=== PATIENT | male | born 1965 | race Caucasian/White ===

== ENCOUNTER 2016-08-22 09:29 | Outpatient (CLI) ==
[2016-03-25 21:52] VITALS: BMI 37.6
[2016-08-22 09:52] VITALS: BP 148/85; TEMP 97.6
[2016-08-22] MEDS ORDERED: TYLENOL PO STA (09:52)
[2016-08-22] MEDS ORDERED: INFED 500 MG in SODIUM CHLORIDE 250 ML IV STA (09:53)
[2016-08-22] MEDS ORDERED: BENADRYL 25 MG in SODIUM CHLORIDE 100 ML IV STA (09:53)
[2016-08-22] MEDS ORDERED: INFED IV STA (10:37)
[2016-08-22] MEDS ORDERED: SODIUM CHLORIDE IV STA (10:37)
[2016-08-22] MEDS ORDERED: INFED IVP STA (10:50)
== END 2016-08-22 13:22 | disposition home or self-care (01) ==
LOC: OUTPT 09:29
PROVIDERS: ATTEND Internal Medicine Hematology & Oncology
DX: D50.9 Iron deficiency anemia, unspecified (principal); K90.9 Intestinal malabsorption, unspecified
CPT/HCPCS: 96365; 96366; 96376; 99211

== ENCOUNTER 2016-11-14 19:08 | Emergency (ER) ==
[2016-11-14 19:14] VITALS: TEMP 98.8; BMI 36.6
[2016-11-14] MEDS ORDERED: DILAUDID 2 MG/ML SYRINGE IM STA (19:24)
[2016-11-14] MEDS ORDERED: PHENERGAN 25 MG/ML VIAL IM STA (19:24)
--- NOTE | 2016-11-14 19:54 | ED.PDOC ---
General ED Provider: Dr. CARMELO LAI-ER Chief Complaint: Headache Stated Complaint: duarte got a migraine Time Seen by Physician: 19:20 Information Source: Patient Exam Limitations: No limitations Primary Care Provider: RICARDO STUBBS Nursing and Triage Documentation Reviewed and Agree: Yes Neurological Complaint Exam - Headache Complaint/Exam Onset: Gradual Duration: 12hrs Symptoms Are: Still present Timing: Constant Worst Headache Ever: No Initial Severity: Mild Current Severity: Moderate Location: Diffuse Character: Reports: Dull, Throbbing, Pressure, Typical headache, Migraine Aggravating: Reports: Bright lights Alleviating: Reports: None Associated Signs and Symptoms: Reports: Nausea. Denies: Dizziness, Seizure, Vomiting, Sinus pressure, Fever, Neck pain, Neck stiffness, Decreased LOC, Visual changes Related History: Reports: Similar episode Related Surgical History: Reports: None SAH Risk Factors: Reports: None Meningitis Risk Factors: Reports: None SDH Risk Factors: Reports: None, Male Temporal Arteritis Risk Factors: Reports: Normal Head CT Within Last 12 Months: Yes Fundoscopic Exam: Present: Normal Findings Papilledema Present: No Temporal Artery Tenderness: Present: None Sinus Tenderness: Present: None TMJ Tenderness: Present: None Glascow Coma Scale (see protocol): 15 Meningeal Signs Positive: No Pain on Passive Flexion-Positive Kernig's: No ROM Limited In: No Limitiations Focal Weakness: Present: None Focal Sensory Loss: Present: None Gait: Normal Nystagmus Present: Yes Gag Reflex Present: No [id number]: Normal Findings Romberg Test Positive: No Babinski Sign: Negative Right, Negative Left Heel to Toe Normal: Yes Differential Diagnoses: Migraine Review of Systems - Review Of Systems Constitutional: Reports: No symptoms Eyes: Reports: No symptoms Ears, Nose, Mouth, Throat: Reports: No symptoms Respiratory: Reports: No symptoms Cardiac: Reports: No symptoms GI: Reports: Nausea : Reports: No symptoms Musculoskeletal: Reports: No symptoms Skin: Reports: No symptoms Neurological: Reports: Headache Endocrine: Reports: No symptoms Hematologic/Lymphatic: Reports: No symptoms All Other Systems: Reviewed and Negative Past Medical History - Past Medical History Previously Healthy: No Endocrine: Reports: DM 2, Dyslipidemia Cardiovascular: Reports: VA, Hypertension Respiratory: Reports: COPD Hematological: Reports: None Gastrointestinal: Reports: None Genitourinary: Reports: None Neuro/Psych: Reports: Anxiety Musculoskeletal: Reports: None Cancer: Reports: Colon Other Pertinent Past Medical History: Lymphoma, Brain Aneurysm, Castleman's Disease - Surgical History General Surgical History: Reports: Appendectomy, Cholecystectomy, Tonsillectomy , Stent, Heart Cath, Other (Bowel Resection X2 (CA)) - Family History Family History: Reports: Unknown - Social History Smoking Status: Never smoker Hx Substance Use: No Alcohol Screening: Occasionally Lives: With family - Immunizations Tetanus Shot up to Date: Yes Physical Exam - Physical Exam Appearance: Well-appearing, Well-nourished Pain Distress: Moderate Eyes: NOA ENT: Ears normal, Nose normal, Oropharynx normal Neck: Supple Respiratory: Airway patent, Breath sounds clear, Breath sounds equal, Respirations nonlabored Cardiovascular: RRR, Pulses normal, No rub, No murmur GI/: Soft, Nontender, No masses, Bowel sounds normal, No Organomegaly Musculoskeletal: Limited ROM Skin: Warm, Dry, Normal color Neurological: Sensation intact Psychiatric: Affect appropriate, Mood appropriate Re-Evaluation - Re-Evaluation Time of Re-Evaluation: 19:55 Status: Improved Vital Signs Stable: Yes Pain Level: 1 Appearance: NAD Lungs: Clear Skin: Warm and Dry Neuro: Alert and Oriented X3 CV: RRR Critical Care Note - Critical Care Note Total Time (mins): 0 Course - Course Orders, Labs, Meds: Orders Category Date Time Status Hydromorphone HCl/Pf [Dilaudid 2 mg/ml Syringe] MEDS 11/14/16 19:24 Discontinued 2 mg IM ONCE STA Promethazine HCl [Phenergan 25 mg/ml Vial] MEDS 11/14/16 19:24 Discontinued 25 mg IM ONCE STA Medications Discontinued Medications Generic Name Dose Route Start Last Admin Trade Name Bruceq PRN Reason Stop Dose Admin Hydromorphone HCl 2 mg 11/14/16 19:24 11/14/16 19:31 Dilaudid 2 Mg/Ml Syringe IM 11/14/16 19:25 2 mg ONCE STA Administration Promethazine HCl 25 mg 11/14/16 19:24 11/14/16 19:29 Phenergan 25 Mg/Ml Vial IM 11/14/16 19:25 25 mg ONCE STA Administration Vital Signs: Temp Pulse Resp BP Pulse Ox 11/14/16 19:56 161/86 H 11/14/16 19:09 98.8 F 89 20 191/107 H 92 L Departure - Departure Time of Disposition: 19:55 Disposition: HOME SELF-CARE Discharge Problem: Migraine Qualifiers: Migraine type: other Status migrainosus presence: without status migrainosus Intractability: not intractable Qualifier Code: (G43.809) Other migraine, not intractable, without status migrainosus Instructions: Migraine Headache (ED) Condition: Good Pt referred to PMD for follow-up: Yes Additional Instructions: f/u with pcp Allergies/Adverse Reactions: Allergies adhesive tape Adverse Reaction (Verified 03/25/16 18:36) ferraheme Adverse Reaction (Uncoded 03/25/16 18:36) states drug made him feel bad all over.Received when getting chemo. Home Medications: Ambulatory Orders Albuterol Sulfate [Proair Hfa] 2 puff IH Q6H PRN 01/24/13 Aspirin [Aspirin Chewable] 81 mg PO DAILY 01/24/13 Carvedilol [Coreg] 25 mg PO BID 01/24/13 Insulin Regular, Human [Humulin R] 1 units SQ PRN PRN 01/24/13 Ipratropium/Albuterol Sulfate [Combivent Inhaler] 2 puff IH QID PRN 01/24/13 Lorazepam [Ativan] 1 mg PO DAILY 01/24/13 Rosuvastatin Calcium [Crestor] 20 mg PO DAILY 01/24/13 Tizanidine HCl [Zanaflex] 4 mg PO BID PRN 01/24/13 Zolpidem Tartrate [Ambien] 5 mg PO BEDTIME 01/24/13 Hydrocodone Bit/Acetaminophen [Beverly 7.5-325] 7.5 mg PO QID PRN 03/12/15 Arformoterol Tartrate [Brovana] 15 mcg NEB BID PRN 06/11/15 Budesonide 0.25 mg IH BID PRN 06/11/15 Gabapentin 1,200 mg PO BEDTIME 06/11/15 Gabapentin 600 mg PO 0900,1300 06/11/15 Insulin Glargine,Hum.rec.anlog [Lantus] 25 unit SUBCUT BEDTIME 06/11/15 Ondansetron HCl [Zofran Tab] 4 mg PO Q12H PRN 06/11/15 Pantoprazole Sodium [Protonix] 40 mg PO QDAC 06/11/15 Furosemide [Lasix Tab] 80 mg PO BIDWM 03/08/16 Metolazone [Zaroxolyn] 2.5 mg PO 3 TIMES PER WEEK PRN 10/06/15 Valsartan 160 mg PO BID 10/06/15 Linaclotide [Linzess] 145 mcg PO DAILY PRN 11/14/16 Disposition Discussed With: Patient
[2016-11-14 19:57] VITALS: BP 161/86
== END 2016-11-14 21:00 | disposition home or self-care (01) ==
LOC: ED 19:08
DX: G43.809 Other migraine, not intractable, without status migrainosus (principal)
CPT/HCPCS: 96372; 99283

== ENCOUNTER 2016-11-28 11:44 | Outpatient (CLI) ==
[2013-01-29 11:46] VITALS: TEMP 97.2
[2016-11-28 12:19] LABS: CREATININE 1.31 mg/dL (0.60-1.10)
--- NOTE | 2016-11-28 13:22 | CT ---
EXAM: CT Abdomen with contrast. CT Pelvis with contrast. HISTORY: Left lower quadrant pain. Diverticulosis. COMPARISON: 05/22/2015. TECHNIQUE: Multiple axial images of the abdomen and pelvis were obtained following intravenous admi nistration of 100 mL of Omnipaque 350, low osmolar. Images were reformatted in the coronal plane. FINDINGS: No acute abnormality identified in the lung bases. Degenerative changes present in the s pine. Gallbladder is absent. The liver, pancreas, spleen, adrenal glands, and kidneys are without acute a bnormality. The bowel is normal in course and caliber without evidence for obstruction or inflammatory process. Colonic diverticulosis noted. Appendix not seen. Urinary bladder is not well distended. No free fluid or free air identified. Multiple clips present in the mesentery with multiple mesenteric lymph nodes present, largest measur ing 1.2 cm short axis on axial image 52. Multiple iliac chain lymph nodes present bilaterally laurence suring 1.7 cm short axis on the right on axial image 77 and 1.3 cm on the left on axial image 85. B ilateral inguinal lymph nodes present bilaterally. Retroperitoneal lymph nodes measure up to 1.2 cm on axial image 55. Lymph nodes are grossly stable since the prior study. IMPRESSION: 1. Diverticulosis without acute diverticulitis. 2. Grossly stable mesenteric, retroperitoneal, iliac and inguinal lymphadenopathy.
== END 2016-11-28 11:45 | disposition home or self-care (01) ==
LOC: RAD 11:44
PROVIDERS: ATTEND Internal Medicine
DX: R10.32 Left lower quadrant pain (principal); K57.90 Diverticulosis of intestine, part unspecified, without perforation or abscess without bleeding
CPT/HCPCS: 36415; 82565

== ENCOUNTER 2017-04-11 14:57 | Inpatient (IN) ==
[2017-04-11] MEDS ORDERED: NITROSTAT SL PRN (15:21)
[2017-04-11] MEDS ORDERED: VISTARIL INJ IM PRN (15:21)
[2017-04-11] MEDS ORDERED: TYLENOL PO PRN (15:21)
[2017-04-11] MEDS ORDERED: ATROPINE SULFATE PFS IVP PRN (15:21)
[2017-04-11] MEDS ORDERED: DECADRON 4 MG/ML SDV IM STA (15:26)
[2017-04-11] MEDS ORDERED: LASIX IVP STA (15:27)
[2017-04-11 16:03] LABS: BASOPHILS % (AUTO) 0.9 % (0.0-3.0); EOSINOPHILS # (AUTO) 0.2 K/ul (0.0-0.7); EOSINOPHILS % (AUTO) 5.4 % (0.0-7.0); HEMATOCRIT 39.5 % (42.0-52.0); HEMOGLOBIN 13.8 g/dl (14.0-18.0); IMMATURE GRANULOCYTE % (AUTO) 0.4 % (0.0-5.0); LYMPHOCYTES # (AUTO) 1.3 K/uL (0.60-3.4); LYMPHOCYTES % (AUTO) 28.9 (10.0-50.0); MEAN CORPUSCULAR HEMOGLOBIN 29.6 pg (27.0-31.0); MEAN CORPUSCULAR HGB CONC 34.9 (31.8-35.4); MEAN CORPUSCULAR VOLUME 84.6 fl (80.0-94.0); MONOCYTES # (AUTO) 0.3 K/uL (0.4-2.0); MONOCYTES % (AUTO) 6.5 (0-10); NEUTROPHILS # (AUTO) 2.6 K/ul (2.0-6.9); NEUTROPHILS % (AUTO) 57.9; PLATELET COUNT 141 10^3/uL (140-440); RED BLOOD COUNT 4.67 10^6/ul (4.70-6.10); WHITE BLOOD COUNT 4.47 K/ul (4.2-10.2)
[2017-04-11 16:05] LABS: ABG BASE EXCESS 6 (-2.0-2.0); ABG PCO2 50.9 mmHg (35-45); ABG PH 7.396 (7.35-7.45)
[2017-04-11 16:06] LABS: ABG HCO3 31.2 (22.0-26.0); ABG TCO2 33 (22.0-28.0)
[2017-04-11] MEDS ORDERED: ZAROXOLYN PO PRN (16:22)
[2017-04-11] MEDS ORDERED: PULMICORT 0.25 MG/2 ML NEB PRN (16:22)
[2017-04-11] MEDS ORDERED: ZOFRAN TAB PO PRN (16:22)
[2017-04-11] MEDS ORDERED: PROAIR HFA IH PRN (16:22)
--- NOTE | 2017-04-11 16:29 | DI ---
Exam: Single x-ray of the chest. Comparison: 03/25/2016. Reason for exam: Short of breath. FINDINGS: No pneumothorax, pleural effusion, or focal consolidation. The cardiac silhouette is not enlarged. The imaged osseous structures appear grossly unremarkable without acute fracture. Impression: No acute cardiopulmonary process.
[2017-04-11 16:47] LABS: ALBUMIN 3.6 g/dL (3.4-5.0); ALBUMIN/GLOBULIN RATIO 1.13; ANION GAP 13.6; BILIRUBIN,TOTAL 0.43 mg/dL (0.00-1.20); BUN/CREATININE RATIO 12.5; CREATININE 1.12 mg/dL (0.60-1.10); POTASSIUM 3.6 mmol/L (3.5-5.1); TOTAL PROTEIN 6.8 g/dL (6.4-8.2); TROPONIN I 0.034 ng/ml (0.0000-0.4000)
[2017-04-11 16:53] VITALS: BMI 37.9
[2017-04-11] MEDS: PULMICORT 0.5 MG/2 ML NEB SCH (17:00)
[2017-04-11] MEDS ORDERED: NON-FORMULARY MEDICATION (Rosuvastatin Calcium [Crestor] 20 MG) PO SCH ×22 (17:00)
[2017-04-11] MEDS: DUONEB NEB SCH ×2 (17:00→23:17)
[2017-04-11] MEDS: COREG PO SCH (17:08)
[2017-04-11] MEDS: NORCO 7.5-325 PO SCH ×2 (17:08→20:08)
[2017-04-11 17:22] LABS: ADD URINE MICROSCOPIC NO; BILIRUBIN,URINE Negative (NEGATIVE); KETONES,URINE Negative (NEGATIVE); LEUKOCYTE ESTERASE ,URINE Negative (NEGATIVE); NITRITE,URINE Negative (NEGATIVE); PH,URINE 6.5 (5-9); PROTEIN,URINE Negative (NEGATIVE); URINE, BLOOD Negative (NEGATIVE)
[2017-04-11] MEDS ORDERED: HUMULIN R SUBCUT SCH (17:30)
[2017-04-11] MEDS: LANTUS SUBCUT SCH (20:05)
[2017-04-11] MEDS: RANEXA PO SCH (20:06)
[2017-04-11] MEDS: AMBIEN PO SCH (20:06)
[2017-04-11] MEDS: CRESTOR PO SCH (20:06)
[2017-04-11] MEDS: NEURONTIN PO SCH (20:07)
[2017-04-11] MEDS: ZANAFLEX PO PRN (20:07)
[2017-04-11] MEDS ORDERED: NON-FORMULARY MEDICATION (Gabapentin [Gabapentin] 1,200 MG) PO SCH (21:00)
[2017-04-11 23:36] LABS: TROPONIN I 0.041 ng/ml (0.0000-0.4000)
[2017-04-12 04:52] LABS: BASOPHILS % (AUTO) 0.1 % (0.0-3.0); HEMATOCRIT 40.1 % (42.0-52.0); HEMOGLOBIN 13.9 g/dl (14.0-18.0); IMMATURE GRANULOCYTE % (AUTO) 0.7 % (0.0-5.0); LYMPHOCYTES # (AUTO) 0.6 K/uL (0.60-3.4); LYMPHOCYTES % (AUTO) 7.1 (10.0-50.0); MEAN CORPUSCULAR HEMOGLOBIN 29.1 pg (27.0-31.0); MEAN CORPUSCULAR HGB CONC 34.7 (31.8-35.4); MEAN CORPUSCULAR VOLUME 84.1 fl (80.0-94.0); MONOCYTES # (AUTO) 0.2 K/uL (0.4-2.0); MONOCYTES % (AUTO) 1.7 (0-10); NEUTROPHILS % (AUTO) 90.4; PLATELET COUNT 153 10^3/uL (140-440); RED BLOOD COUNT 4.77 10^6/ul (4.70-6.10); WHITE BLOOD COUNT 8.84 K/ul (4.2-10.2)
[2017-04-12 05:15] LABS: ALBUMIN 3.6 g/dL (3.4-5.0); ALBUMIN/GLOBULIN RATIO 1.09; BILIRUBIN,TOTAL 0.53 mg/dL (0.00-1.20); BUN/CREATININE RATIO 15.12; CALCIUM 9.4 mg/dL (8.2-10.2); CREATININE 1.19 mg/dL (0.60-1.10); TOTAL PROTEIN 6.9 g/dL (6.4-8.2)
[2017-04-12] MEDS: DUONEB NEB SCH ×4 (05:24→23:06)
[2017-04-12] MEDS: PULMICORT 0.5 MG/2 ML NEB SCH ×2 (05:25→17:05)
[2017-04-12] MEDS: LASIX IVP SCH (05:42)
[2017-04-12] MEDS: PROTONIX PO SCH (05:43)
[2017-04-12] MEDS: NORCO 7.5-325 PO SCH ×3 (05:43→17:06)
[2017-04-12] MEDS: HUMULIN R SUBCUT PRN ×3 (05:43→17:06)
[2017-04-12] MEDS ORDERED: HUMULIN R SUBCUT SCH (06:30)
[2017-04-12] MEDS ORDERED: XOPENEX 1.25 MG NEB PRN (08:38)
[2017-04-12] MEDS ORDERED: NON-FORMULARY MEDICATION (Gabapentin [Gabapentin] 600 MG) PO SCH (09:00)
[2017-04-12] MEDS ORDERED: DECADRON 4 MG/ML SDV IM SCH (09:00)
[2017-04-12] MEDS ORDERED: ASPIRIN CHEWABLE PO SCH (09:00)
[2017-04-12] MEDS ORDERED: ATIVAN PO SCH (09:00)
[2017-04-12] MEDS: RANEXA PO SCH ×2 (09:18→20:40)
[2017-04-12] MEDS: COREG PO SCH ×2 (09:18→17:06)
[2017-04-12] MEDS: NEURONTIN PO SCH ×3 (09:18→20:41)
[2017-04-12] MEDS: ATIVAN PO SCH (09:19)
[2017-04-12] MEDS: PRASUGREL HCL 10 MG PO SCH (09:19)
[2017-04-12] MEDS: ASPIRIN EC PO SCH (09:19)
[2017-04-12] MEDS: DIOVAN PO SCH (09:19)
[2017-04-12] MEDS: ZANAFLEX PO PRN ×2 (09:23→20:40)
--- NOTE | 2017-04-12 12:00 | PCM.PROG ---
Attending Provider: ATTENDING PROVIDER: Dr. RICARDO STUBBS DATE OF SERVICE: 04/12/17 SUBJECTIVE: This 51 year old WHITE/ M was hospitalized 04/11/17. The patient is hospitalized with CHF, COPD, pleuritic type of chest pain. The patient's cardiac markers are negative for any ischemia. EKG shows sinus rhythm, LVH, nonspecific intraventricular conduction delay. No acute changes. REVIEW OF SYSTEMS: CONSTITUTIONAL: No night sweats. No fatigue, malaise, lethargy. No fever or chills. HEENT: Eyes: No visual changes. No eye pain. No eye discharge. ENT: No runny nose. No epistaxis. No sinus pain. No odynophagia. No congestion. RESPIRATORY: No cough, no congestion. No hemoptysis. No shortness of breath. CARDIOVASCULAR: No angina symptoms. No CHF symptoms. No atypical chest pain for CAD. No palpitations. No orthopnea.. GASTROINTESTINAL: No abdominal pain. No nausea or vomiting. No diarrhea or constipation. No hematemesis. No hematochezia. GENITOURINARY: No urgency. No frequency. No dysuria. No hematuria. No obstructive symptoms. No discharge. No pain. No significant abnormal bleeding. MUSCULOSKELETAL: No musculoskeletal pain; no joint swelling. NEUROLOGICAL: Awake, alert, oriented to time, place and person. No headache. No neck pain. No syncope. No seizures. No dizziness. PSYCHIATRIC: Not anxious. No depression. No suicidal thoughts. No homicidal thoughts. SKIN: No rash. No lesions. No wounds. ENDOCRINE: No unexplained weight loss. No weight gain. HEMATOLOGIC/LYMPHATIC: No anemia. No purpura. No petechiae. No prolonged or excessive bleeding. No palpable lymph nodes. PHYSICAL EXAMINATION: GENERAL: The patient is awake, alert and oriented, lying in bed in no distress. VITAL SIGNS: Temperature 98.0 F, Pulse 87, Respiratory Rate 16, BP 133/77, Pulse Ox 94% HEENT: Head normocephalic, atraumatic. Eyes: Extraocular muscles are intact. Pupils are equal, round and reactive to light and accommodation. Ears: No lesions. Nose appeared normal. Throat: No exudate or erythema. NECK: Supple. No JVD, no carotid bruit. No lymphadenopathy or thyromegaly. LUNGS: Decreased breath sounds but more or less clear. Good air entry, better than yesterday. Percussion note normal. Chest symmetrical. HEART: S1, S2, no S3. No murmurs. No cyanosis or clubbing. No ascites. Pulses: Dorsalis pedis and posterior tibial pulses +1 to +2 both sides. ABDOMEN: Soft. Non-tender. Bowel sounds active. No CVA tenderness. No mass felt. EXTREMITIES: No edema. Full range of motion of all extremities, equal. NEUROLOGIC: No focal deficit. Cranial nerves II through XII are grossly intact. No headache, no double vision or headache. SKIN: Not dry. Intact. Turgor-normal. LYMPHATIC: No palpable lymph nodes/no lymphedema. MUSCULOSKELETAL: Normal joints with no swelling. Muscle tone is normal. LAB REVIEW: 04/12/17 04:30 04/12/17 04:30 04/12/17 04:30: Sodium 138, Potassium 4.0, Chloride 99, Carbon Dioxide 28, Anion Gap 15.0, BUN 18, Creatinine 1.19 H, Estimated GFR (MDRD) 64.00, BUN/ Creatinine Ratio 15.12, Glucose 238 H D, Calcium 9.4, Total Bilirubin 0.53, AST 14 L, ALT 18, Alkaline Phosphatase 74, Total Protein 6.9, Albumin 3.6, Globulin 3.3, Albumin/Globulin Ratio 1.09 04/12/17 04:30: WBC 8.84, RBC 4.77, Hgb 13.9 L, Hct 40.1 L, MCV 84.1, MCH 29.1, MCHC 34.7, RDW Coeff of Kvng 12.7, Plt Count 153, Immature Gran % (Auto) 0.7, Neut % (Auto) 90.4, Lymph % (Auto) 7.1 L, [place] % (Auto) 1.7, Eos % (Auto) 0.0, Baso % (Auto) 0.1, Immature Gran # (Auto) 0.1, Neut # 8.0 H, Lymph # 0.6, [place] # 0.2 L, Eos # 0.0, Baso # 0.0 04/11/17 23:10: Total Creatine Kinase 70, Myoglobin 29, Troponin I 0.0410 04/11/17 17:19: Urine Color Yellow, Urine Clarity Clear, Urine pH 6.5, Ur Specific [place] 1.015, Urine Protein Negative, Urine Glucose (UA) Negative, Urine Ketones Negative, Urine Blood Negative, Urine Nitrite Negative, Urine Bilirubin Negative, Urine Urobilinogen 0.2, Ur Leukocyte Esterase Negative 04/11/17 15:59: Sodium 140, Potassium 3.6, Chloride 102, Carbon Dioxide 28, Anion Gap 13.6, BUN 14, Creatinine 1.12 H, Estimated GFR (MDRD) 69.00, BUN/ Creatinine Ratio 12.50, Glucose 188 H, Calcium 9.0, Total Bilirubin 0.43, AST 15 , ALT 17, Alkaline Phosphatase 75, Total Creatine Kinase 72, Myoglobin 34, Troponin I 0.0340, Total Protein 6.8, Albumin 3.6, Globulin 3.2, Albumin/ Globulin Ratio 1.13, TSH 1.820, Free T4 0.83 04/11/17 15:59: WBC 4.47, RBC 4.67 L, Hgb 13.8 L, Hct 39.5 L, MCV 84.6, MCH 29.6 , MCHC 34.9, RDW Coeff of Kvng 13.0, Plt Count 141, Immature Gran % (Auto) 0.4, Neut % (Auto) 57.9, Lymph % (Auto) 28.9, [place] % (Auto) 6.5, Eos % (Auto) 5.4, Baso % (Auto) 0.9, Immature Gran # (Auto) 0.0, Neut # 2.6, Lymph # 1.3, [place] # 0.3 L, Eos # 0.2, Baso # 0.0 04/11/17 15:27: Puncture Site Rbrach, O2 Saturation 93.0 L, ABG pH 7.396, ABG pCO2 50.9 H, ABG pO2 69.0 L, ABG HCO3 31.2 H, ABG Total CO2 33 H, ABG Base Excess 6 H, FiO2 % 21.0 ASSESSMENT: 1. CHF 2. COPD, bronchitis, pleuritic pain all under control PLAN: 1. Continue IV Lasix 2. 1 cc Decadron today 3. Will monitor CBC 4. Will monitor telemetry 5. Continue nebs 6. Echocardiogram 7. Xopenex p.r.n. q.i.d. Plan and coordination of the patient's care discussed in the presence of Pensionholder Information Clerk and nurse. EDUCATION: Education carried out about CHF with the patient who voices understanding. CONDITION: Stable SCRIBED BY: MICHELLE FRIAS Chlorine Plant Operator scribed while in presence of service performed by Dr. RICARDO STUBBS on 04/12/17 ([id number])
[2017-04-12] MEDS: AMBIEN PO SCH (20:40)
[2017-04-12] MEDS: CRESTOR PO SCH (20:40)
[2017-04-12] MEDS: LANTUS SUBCUT SCH (20:41)
[2017-04-13] MEDS: NORCO 7.5-325 PO SCH ×3 (00:01→11:55)
[2017-04-13 04:40] LABS: BASOPHILS % (AUTO) 0.2 % (0.0-3.0); EOSINOPHILS % (AUTO) 0.1 % (0.0-7.0); HEMATOCRIT 38.1 % (42.0-52.0); HEMOGLOBIN 13.1 g/dl (14.0-18.0); IMMATURE GRANULOCYTE % (AUTO) 0.8 % (0.0-5.0); LYMPHOCYTES # (AUTO) 1.1 K/uL (0.60-3.4); LYMPHOCYTES % (AUTO) 13.2 (10.0-50.0); MEAN CORPUSCULAR HGB CONC 34.4 (31.8-35.4); MEAN CORPUSCULAR VOLUME 84.3 fl (80.0-94.0); MONOCYTES # (AUTO) 0.4 K/uL (0.4-2.0); NEUTROPHILS % (AUTO) 80.7; PLATELET COUNT 169 10^3/uL (140-440); RED BLOOD COUNT 4.52 10^6/ul (4.70-6.10); WHITE BLOOD COUNT 8.66 K/ul (4.2-10.2)
[2017-04-13 05:04] LABS: ALBUMIN 3.5 g/dL (3.4-5.0); ALBUMIN/GLOBULIN RATIO 1.13; ANION GAP 14.9; BILIRUBIN,TOTAL 0.47 mg/dL (0.00-1.20); CALCIUM 9.6 mg/dL (8.2-10.2); CREATININE 1.21 mg/dL (0.60-1.10); POTASSIUM 3.9 mmol/L (3.5-5.1); TOTAL PROTEIN 6.6 g/dL (6.4-8.2)
[2017-04-13] MEDS: DUONEB NEB SCH ×2 (05:16→11:37)
[2017-04-13] MEDS: PULMICORT 0.5 MG/2 ML NEB SCH (05:16)
[2017-04-13] MEDS: PROTONIX PO SCH (05:46)
[2017-04-13] MEDS: HUMULIN R SUBCUT PRN ×2 (05:47→11:56)
[2017-04-13] MEDS: LASIX IVP SCH (05:51)
[2017-04-13 09:27] VITALS: BP 116/66; TEMP 98
[2017-04-13] MEDS: ASPIRIN EC PO SCH (09:56)
[2017-04-13] MEDS: NEURONTIN PO SCH ×2 (09:57→12:06)
[2017-04-13] MEDS: ATIVAN PO SCH (09:57)
[2017-04-13] MEDS: RANEXA PO SCH (09:57)
[2017-04-13] MEDS: COREG PO SCH (09:57)
[2017-04-13] MEDS: DIOVAN PO SCH (09:57)
[2017-04-13] MEDS: PRASUGREL HCL 10 MG PO SCH (09:58)
[2017-04-13] MEDS ORDERED: NON-FORMULARY MEDICATION (Linaclotide [Linzess] 145 MCG) PO PRN ×2 (10:04→10:30)
--- NOTE | 2017-04-13 11:28 | HP ---
DATE OF SERVICE: 04/11/17 REASON FOR HOSPITALIZATION: Sharp left-sided chest pain. HISTORY OF PRESENT ILLNESS: This is a 51-year-old male with fatigue, shortness of breath, sharp-left sided chest pain. The patient was unable to sleep lying down last night. Decreased urine output, has taken Zaroxolyn/Lasix. REVIEW OF SYSTEMS: CONSTITUTIONAL: Fatigue. No fever. HEENT: No sinus drainage, no sore throat. RESPIRATORY: Cough. No hemoptysis. CARDIOVASCULAR: Atypical chest pain for coronary artery disease, pleuritic in type. No angina. CHF symptoms - orthopnea. No palpitations. GASTROINTESTINAL: No melena or abdominal pain. No GERD. GENITOURINARY: No hematuria, no prostatism, no polyuria. PROSPECT MANAGER: No blackout, no dizziness, no headache, no double vision. MUSCULOSKELETAL: Osteoarthritis pain. No joint swelling. ENDOCRINE: Weight loss of 3 lbs. SKIN: Not dry, no rash. PSYCHIATRIC: Anxious. No depression, no suicidal thoughts, no homicidal thoughts. PAST MEDICAL HISTORY: 1. Anemia 2. CKD-4 3. Diabetes mellitus type 2 4. Obesity 5. Hypertension 6. Sleep apnea 7. LVH 8. CHF 9. 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 COPD 12. Chronic bronchitis/asthma, uses 02 at home SOCIAL HISTORY: Nonsmoker. . No alcohol use. No drug use. Has three children. FAMILY HISTORY: Father is living. Mother is . One brother. One sister. MEDICATIONS: (HOME) 1. Valsartan 80 mg once daily 2. Ranexa 500 mg tablet extended release 12 hr one tablet p.o. two times daily 3. Effient 10 mg take one tablet (10 mg) p.o. once daily 4. Linzess 145 mcg capsule take one capsule p.o. once daily on an empty stomach at least 30 min before first meal of the day swallowing hole. 5. Zanaflex 4 mg one tablet p.o. q.12hr as needed not to exceed 3 doses in 24 hours p.r.n. 6. Zofran 4 mg one tablet p.o. q.12hr p.r.n. 7. Protonix 40 mg one p.o. once daily 8. Albuterol 90 mcg/actuation HFA aerosol inhaler two puffs by inhalation route four times per day 9. Neurontin 600 mg one capsule p.o. three times per day take one a.m., one noon and two at h.s. 10. Viagra 100 mg p.o. once daily as needed approximately one hour before sexual activity p.r.n. 11. Lantus 100 unit/mL solution p.m. 12. Crestor 20 mg take one tablet p.o. daily 13. Zaroxolyn 2.5 mg p.o. one time per day, one tablet three times per week p.r.n. 14. Coreg 25 mg one tablet p.o. two times per day with food PHYSICAL EXAMINATION: V/S: Pulse 80, BP 156/90, 02 sat 96%, weight 269.8. Height 5'10", weight 209.8 , BMI 38.7. GENERAL APPEARANCE: Oriented times three. Pallor positive. HEENT: Normal. NECK: No JVP, no bruits. RESPIRATORY: Lungs are clear with decreased breath sounds, minimal air movement. CARDIOVASCULAR: S1, S2, no S3, no murmurs. No cyanosis, clubbing. No ascites. GI/ABDOMEN: Tenderness. Bowel sounds are active. EXTREMITIES: No edema, pulses +1, equal. PROSPECT MANAGER: Deep tendon reflexes, sensory, motor and gait all normal. RECTAL/PROSTATE: Prostate 02/12 (0.2). Colonoscopy Dr. Sarmiento 06/12. ASSESSMENT: 1. CHF 2. Chest pain, pleuritic 3. CAD with stent times two 05/15 4. COPD/ASTHMA 5. 02 at home p.r.n. 6. Anemia 7. Chronic bronchitis/asthma 8. Chronic kidney disease, Stage 4 9. Diabetes mellitus type 2 (A1C 8.4 on 02/13 10. Obesity 11. Hypertension 12. LVH 13. CHF 14. Dyslipidemia 15. Lymphoma 16. Sleep apnea 17. DJD spine PLAN: 1. Routine telemetry orders 2. CBC/CMP daily and now 3. Chest x-ray 4. ADA diet 5. ABG now 6. IV Lasix 40 mg KARRIE/and q.a.m. 7. Oxygen 2L/cannula/min 8. 1 cc Decadron today and q.a.m. times two 9. T4, TSH 10. Continue all home medications 11. D/C oral Lasix 12. Duonebs q.i.d. 13. Pulmicort b.i.d. TIME SPENT: More than 70 minutes. SERAFIN
--- NOTE | 2017-04-14 15:43 | DS ---
DATE OF SERVICE: 04/13/17 FINAL DIAGNOSIS: 1. Congestive heart failure 2. COPD/asthmatic bronchitis 3. Pleuritic chest pain 4. Coronary artery disease status post stent application, 2009 5. Cardiomyopathy 6. Left ventricular hypertrophy 7. Hypertension 8. Dyslipidemia 9. Diabetes mellitus, type 2 10.Metabolic syndrome 11.Sleep apnea 12.Hypothyroidism 13.Obesity (BMI 37.9) 14.Lymphoma 15.DJD of the spine 16.Erectile dysfunction 17.Cholecystectomy 18.Nonsmoker DISCHARGE INSTRUCTIONS: Discharge home today. Return to see Dr. Bhagat in 5-7 days. Resume home medication as per listed provided by Nursing staff. MEDICATIONS AT DISCHARGE: Humulin R SQ PRN Crestor 20mg PO QPM Zanaflex 4mg PO twice a day PRN Coreg 25mg PO twice a day Proair 2puffs IH Q 6 hours PRN Ambien 5mg PO bedtime Combivent 2 puffs IG four times a day PRN Aspirin 81mg PO daily [place] 7.5-325mg PO four times a day Protonix 40mg PO QDAC Zofran 4mg Po Q 12 hours Gabapentin 1,200mg PO bedtime Gabapentin 600mg PO 0900, 1300 Lantus 25unit SUBCUT bedtime Budesonide 0.25mg IH twice a day PRN Brovana 15mcg NEB twice a day PRN Zaroxolyn 2.5mg PO three time per week PRN Linzess 145mcg PO daily PRN Ativan 0.5mg PO daily Ranexa 500mg PO twice a day Effient 10mg PO daily Furosemide 80mg PO QDAC Valsartan 80mg PO QAM Viagra 100mg PO as directed PRN NEW PRESCRIPTIONS: Lasix 40mg PO QDAC DIET INSTRUCTIONS: Consistent carbs Low salt ACTIVITY: Get plenty of rest at home. Gradually increase activity level according to toleration. SMOKING: Never smoker DISEASE SPECIFIC EDUCATION: Foot and eye care Elevate legs Congestive heart failure HOSPITAL COURSE: 51 year old white male hospitalized with fluid retention and worsening of COPD, bronchitis and pleuritic type of pain. The patient was given steroids, NEBS treatment, IV Lasix. The patient's condition improved. His face was less swollen and the edema in the legs subsided and started breathing a lot better. There was no wheezing. The patient has asthma which requires intensive treatment at times. The patient's echo showed practically normal LV contractility with LVH with borderline enlarged LV cavity and the patient has enlarged LA cavity. The patient was advised to take his medication on regular basis and advised to lose weight and join cardiopulmonary rehab. Counseling for weight loss diet done. The patient's BMI is 38 almost to morbid obesity level. He has several risk factors for CVA. On discharge the patient had hgb of 13, hct 38, WBC 8,600 normal differential, creatinine 1.2, BUN 23, potassium 3.9. Condition at the time of discharge stable. TIME SPENT: More than 60 minutes. MTDD
--- NOTE | 2017-04-14 15:44 | PN ---
04/11/17: Level 5 04/12/17: Intermediate 04/13/17: D as in discharge MTDD
--- NOTE | 2017-04-14 15:53 | PN ---
DATE OF SERVICE: 04/13/17 SUBJECTIVE: 51 year old white male hospitalized with COPD, bronchitis, pleuritic type of pain, early CHF with fluid retentions. The patient's condition has improved remarkably and he is feeling a lot better and wants to go home. REVIEW OF SYSTEMS: CONSTITUTIONAL: No night sweats. No fatigue, malaise, lethargy. No fever or chills. HEENT: Eyes: No visual changes. No eye pain. No eye discharge. ENT: No runny nose. No epistaxis. No sinus pain. No sore throat. No odynophagia. No congestion. RESPIRATORY: No cough, no congestion. No hemoptysis. No shortness of breath. CARDIOVASCULAR: No angina symptoms. No CHF symptoms. No atypical chest pain for CAD. No palpitations. No orthopnea. GASTROINTESTINAL: No abdominal pain. No nausea or vomiting. No diarrhea or constipation. No hematemesis. No hematochezia. GENITOURINARY: No urgency. No frequency. No dysuria. No hematuria. No obstructive symptoms. No discharge. No pain. No significant abnormal bleeding. MUSCULOSKELETAL: No musculoskeletal pain; no joint swelling. NEUROLOGICAL: No headache. No neck pain. No syncope. No seizures. No dizziness. PSYCHIATRIC: Not anxious. No depression. No suicidal thoughts. No homicidal thoughts. SKIN: No rash. No lesions. No wounds. ENDOCRINE: No unexplained weight loss. No weight gain. HEMATOLOGIC/LYMPHATIC: No anemia. No purpura. No petechiae. No prolonged or excessive bleeding. No palpable lymph nodes. PHYSICAL EXAMINATION: GENERAL: The patient is oriented to time, place and person. VITAL SIGNS: Temperature 97.8, pulse 80, respiratory rate 17, blood pressure 107/60 and pulse ox 97%. HEENT: Head normocephalic, atraumatic. Eyes: Extraocular muscles are intact. Pupils are equal, round and reactive to light and accommodation. Ears: No lesions. Nose appeared normal. Throat: No exudate or erythema. NECK: Supple. No JVP, no carotid bruit. No lymphadenopathy or thyromegaly. LUNGS: Good air entry with no wheeze. Clear to auscultation. Percussion note normal. Chest symmetrical. HEART: S1, S2, no S3. No murmurs. No cyanosis or clubbing. No ascites. Pulses: Dorsalis pedis and posterior tibial pulses +1 to +2 both sides. ABDOMEN: Soft. Nontender. Bowel sounds active. No CVA tenderness. No mass felt. EXTREMITIES: Trace edema. Full range of motion of all extremities, equal. NEUROLOGIC: No focal deficit. Cranial nerves II through XII are grossly intact. No headache, no double vision or headache. SKIN: Not dry. Intact. Turgor - normal. LYMPHATIC: No palpable lymph nodes/no lymphedema. MUSCULOSKELETAL: Normal joints with no swelling. Muscle tone is normal. LABS: hgb 13.1, hct 38, WBC 8,600 normal differential, creatinine 1.2, BUN 23, potassium 3.9. The patient had an echocardiogram done which showed almost normal LV contractility, borderline LV cavity, enlarged LV cavity and valves are normal. ASSESSMENT: 1. CHF 2. Acute bronchitis 3. Pleuritis pain, all subsided 4. Almost morbid obesity, advised to lose weight PLAN: 1. Advised to join pulmonary and cardiac rehab with CHF, Coronary artery disease and coronary artery disease and COPD 2. Continue all the medications 3. Advised to take medication on regular basis CONDITION: Stable. TIME SPENT: More than 30 minutes. Plan and coordination of the patient's care discussed in the presence of nurse. SERAFIN
--- NOTE | 2017-04-17 14:03 | ECHO2D ---
Date of Exam: 04/13/17 Ordering Physician: RICARDO STUBBS Room #: [id number] Reason for Echo: CHF, SOB, CHEST PAIN M-Mode Normal Adult Results LV Dimensions Normal Adult Results AoV Opening excursions >1.6 >1.6 LVEDD-base- 3.5-5.8 5.9 Ao root dimensions 2.0-3.7 4.2 LVESD-base- 3.1-4.6 L. Atrium dimensions 1.9-3.8 5.4 Post. Wall thickness 0.8-1.1 1.6 IV septum (thickness) 0.7-1.2 1.5 Post. Wall excursion 0.72-1.3 NORMAL Septal motion NORMAL Systolic motion R. Ventricular cavity 1.5-2.0 NORMAL LVEF 60% 56% Paradoxical septal wall motion NORMAL 2-D : ENLARGED LEFT ATRIAL CAVITY AND LEFT VENTRICLE CAVITY--NORMAL LEFT VENTRICLE CONTRACTILITY--NO EFFUSION, NO THROMBUS M-MODE: MV: NORMAL AV: NORMAL TV: NORMAL PV: CHAMBER SIZE: ENLARGED LEFT ATRIAL AND LEFT VENTRICLE CAVITIES WALL MOTION: NORMAL PERICARDIUM: NORMAL INTERPRETATION: 1. MODERATE LEFT VENTRICULAR HYPERTROPHY 2. ENLARGED LEFT ATRIAL AND LEFT VENTRICLE CAVITIES 3. NORMAL LEFT VENTRICULAR CONTRACTILITY 4. NORMAL VALVES MTDD
== END 2017-04-13 12:10 | disposition home or self-care (01) | DRG 292 ==
LOC: MEDSURG B 14:57
PROVIDERS: ADMIT Internal Medicine; ATTEND Internal Medicine
DX: I50.9 Heart failure, unspecified (principal); N18.4 Chronic kidney disease, stage 4 (severe); C85.90 Non-Hodgkin lymphoma, unspecified, unspecified site; J20.9 Acute bronchitis, unspecified; J44.9 Chronic obstructive pulmonary disease, unspecified; R07.81 Pleurodynia; I51.7 Cardiomegaly; I42.9 Cardiomyopathy, unspecified; I12.9 Hypertensive chronic kidney disease with stage 1 through stage 4 chronic kidney disease, or unspecified chronic kidney disease; E11.22 Type 2 diabetes mellitus with diabetic chronic kidney disease; I25.10 Atherosclerotic heart disease of native coronary artery without angina pectoris; I10 Essential (primary) hypertension; R06.02 Shortness of breath; E78.5 Hyperlipidemia, unspecified; E88.81 Metabolic syndrome and other insulin resistance; G47.30 Sleep apnea, unspecified; E03.9 Hypothyroidism, unspecified; E66.9 Obesity, unspecified; M47.9 Spondylosis, unspecified; N52.9 Male erectile dysfunction, unspecified; Z95.5 Presence of coronary angioplasty implant and graft; Z68.37 Body mass index [BMI] 37.0-37.9, adult; Z79.4 Long term (current) use of insulin; Z79.899 Other long term (current) drug therapy
CPT/HCPCS: 36415; 80053; 81001; 82550; 82803; 82962; 83874; 83880; 84439; 84443; 84484; 85025; 93005; 93010; 94640

== ENCOUNTER 2017-05-03 12:24 | Outpatient (CLI) | payer OTHER ==
[2013-01-29 11:46] VITALS: TEMP 97.2
--- NOTE | 2017-05-03 13:05 | DI ---
EXAM: Radiographs, left [place] HISTORY: Left shoulder osteoarthritis. COMPARISON: 02/17/2011. TECHNIQUE: Three-view. FINDINGS: The bone mineralization is normal. No fracture or dislocation identified. There is mild spurring at the acromioclavicular joint. Mild cystic change seen in the region of the greater tubero sity of the humerus. Soft tissues are unremarkable. Left perihilar nodule is stable since 2010, con sistent with calcified granuloma. IMPRESSION: 1. Mild acromioclavicular osteoarthritis. 2. Cystic change near the greater tuberosity suggest rotator cuff pathology
--- NOTE | 2017-05-03 13:05 | DI ---
EXAM: RIGHT SHOULDER HISTORY: Osteoarthritis, bursitis FINDINGS: Right shoulder three-view. Compared to 11/28/2014. Glenohumeral joint is within normal li mits. There is minimal acromioclavicular joint osteoarthritis. No joint separation, subluxation or dislocation. Soft tissues are within normal limits. IMPRESSION: Early osteoarthritis of the AC joint. Findings appear similar to that seen on prior exam.
== END 2017-05-03 12:25 | disposition home or self-care (01) ==
LOC: RAD 12:24
PROVIDERS: ATTEND Pain Medicine Interventional Pain Medicine
DX: M75.51 Bursitis of right shoulder (principal); M19.011 Primary osteoarthritis, right shoulder; M19.012 Primary osteoarthritis, left shoulder

== ENCOUNTER 2017-05-24 08:47 | Outpatient (CLI) ==
[2017-05-24] MEDS ORDERED: INFED IV STA (09:01)
[2017-05-24] MEDS ORDERED: SODIUM CHLORIDE IV STA (09:01)
[2017-05-24] MEDS ORDERED: TYLENOL PO STA (09:03)
[2017-05-24] MEDS ORDERED: BENADRYL 25 MG in SODIUM CHLORIDE 100 ML IV STA (09:03)
[2017-05-24] MEDS ORDERED: SOLU-CORTEF 100 MG IVP STA (09:04)
[2017-05-24 09:16] VITALS: BP 133/84; TEMP 97.4
[2017-05-24] MEDS ORDERED: INFED IVP ONE (09:30)
[2017-05-24] MEDS ORDERED: INFED 500 MG in SODIUM CHLORIDE 250 ML IV ONE (10:00)
== END 2017-05-24 13:44 | disposition home or self-care (01) ==
LOC: OPMED 08:47
PROVIDERS: ATTEND Internal Medicine Hematology & Oncology
DX: D50.9 Iron deficiency anemia, unspecified (principal); K90.9 Intestinal malabsorption, unspecified
CPT/HCPCS: 96365; 96366; 96367; 96375

== ENCOUNTER 2017-06-23 06:51 | Outpatient (CLI) ==
[2013-01-29 11:46] VITALS: TEMP 97.2
[2017-06-23 07:25] LABS: CREATININE 1.09 mg/dL (0.60-1.10)
--- NOTE | 2017-06-23 08:49 | CT ---
EXAM: CT abdomen and pelvis after the administration of IV contrast. HISTORY: Abdominal swelling TECHNIQUE: Multi-slice transaxial helical CT. Coronal and sagittal reformatons were performed. COMPARISON: 11/28/2016. FINDINGS: The heart is normal in size. Trace pericardial effusion is present. The gallbladder has been removed. The spleen is mildly enlarged measuring up to 13.2 cm in length. No hydronephrosis or renal calculus is seen. There is no intrahepatic biliary ductal dilation. The pancreas and the bilateral adrenal glands appear grossly unremarkable. The bowel is not dilated. Urinary bladder appears unremarkable. The prostate is on the upper limits of normal in size. Mild colonic diverticulosis is seen without evidence of diverticulitis. Surgical clips are present within the central mesentery. The appendix is not clearly identified. Multilevel lumbar facet osteoarthritis is present. Calcified plaques are present within the abdominal aorta and its major branch vessels. IMPRESSION: 1. No acute abdominal findings. 2. Colonic diverticulosis without diverticulitis. 3. Unchanged mesenteric, retroperitoneal, and inguinal adenopathy. 4. Operative changes of the mesentery and prior cholecystectomy. 5. Trace pericardial effusion.
== END 2017-06-23 06:52 | disposition home or self-care (01) ==
LOC: RAD 06:51
PROVIDERS: ATTEND Internal Medicine
DX: R19.00 Intra-abdominal and pelvic swelling, mass and lump, unspecified site (principal); Z85.72 Personal history of non-Hodgkin lymphomas
CPT/HCPCS: 36415; 82565

== ENCOUNTER 2017-06-28 10:28 | Emergency (ER) ==
[2017-06-28 10:40] VITALS: BP 192/110; TEMP 97.5; BMI 38.0
--- NOTE | 2017-06-28 11:13 | ED.PDOC ---
General ED Provider: Dr. NOAH PAGAN Chief Complaint: Eye Problem Stated Complaint: right eye red Time Seen by Physician: 10:30 Mode of Arrival: Walk-In Information Source: Patient Exam Limitations: No limitations Primary Care Provider: RICARDO STUBBS Nursing and Triage Documentation Reviewed and Agree: Yes (see n elisha) EENT Complaint Exam - Eye Complaint/Exam Onset/Duration: 1 dsay red eye right side Symptoms Are: Still present Timing: Constant Initial Severity: Mild Current Severity: Mild Location: Right Character: Reports: Dull Aggravating: Reports: None Alleviating: Reports: None Associated Signs and Symptoms: Reports: Photophobia, Clear drainage Eye Surgical History: Reports: None Penetrating Injury Risk Factors: None Globe Rupture Risk Factors: None Acute Glaucoma Risk Factors: None Optic Artery Occlusion Risk Factors: None Visual Acuity Right Eye: 20/40 Visual Acuity Left Eye: patient states can not see out of this eye normally. Visual Field: Normal Extraocular Movement: Normal Orbit Findings: Normal Globe Findings: Intact Lid Findings: Erythema (red) Conjunctival Findings: Red Corneal Findings: Clear Differential Diagnoses: Conjunctivitis Review of Systems - Review Of Systems Constitutional: Reports: No symptoms Eyes: Reports: Drainage (junctivitis) Ears, Nose, Mouth, Throat: Reports: No symptoms Respiratory: Reports: No symptoms Cardiac: Reports: No symptoms GI: Reports: No symptoms : Reports: No symptoms Musculoskeletal: Reports: No symptoms Skin: Reports: No symptoms Neurological: Reports: No symptoms Endocrine: Reports: No symptoms Hematologic/Lymphatic: Reports: No symptoms All Other Systems: Reviewed and Negative Past Medical History - Past Medical History Previously Healthy: No Endocrine: Reports: DM 2, Dyslipidemia Cardiovascular: Reports: [place], Hypertension Respiratory: Reports: COPD Hematological: Reports: None Gastrointestinal: Reports: None Genitourinary: Reports: None Neuro/Psych: Reports: Anxiety Musculoskeletal: Reports: None Cancer: Reports: Colon Other Pertinent Past Medical History: Lymphoma, Brain Aneurysm, Castleman's Disease - Surgical History General Surgical History: Reports: Appendectomy, Cholecystectomy, Tonsillectomy , Stent, Heart Cath, Other (Bowel Resection X2 (CA)) - Family History Family History: Reports: Unknown - Social History Smoking Status: Never smoker Hx Substance Use: No Alcohol Screening: Occasionally Physical Exam - Physical Exam Appearance: Well-appearing, No pain distress, Well-nourished Eyes: Conjunctiva inflammed (right) ENT: Ears normal, Nose normal, Oropharynx normal Respiratory: Airway patent, Breath sounds clear, Breath sounds equal, Respirations nonlabored Cardiovascular: RRR, Pulses normal, No rub, No murmur GI/: Soft, Nontender, No masses, Bowel sounds normal, No Organomegaly Musculoskeletal: Normal strength, ROM intact, No edema, No calf tenderness Skin: Warm, Dry, Normal color Neurological: Sensation intact, Motor intact, Reflexes intact, Cranial nerves intact, Alert, Oriented Psychiatric: Affect appropriate, Mood appropriate Physician Notification - Case Discussed Physician Notified: manny Time of Notification: 11:13 Critical Care Note - Critical Care Note Total Time (mins): 0 (will see pt in clinic 12:45 pm) Course - Course Vital Signs: Temp Pulse Resp BP Pulse Ox 06/28/17 10:30 97.5 F L 87 16 192/110 H 95 Departure - Departure Time of Disposition: :13 Disposition: HOME SELF-CARE Discharge Problem: [place] eye disease of right eye Instructions: Conjunctivitis (ED) Condition: Good Pt referred to PMD for follow-up: Yes Additional Instructions: Please call your Family Physician as soon as possible to schedule a follow-up appointment. Allergies/Adverse Reactions: Allergies clonidine Adverse Reaction (Severe, Verified 06/28/17 10:34) Swelling codeine Adverse Reaction (Unknown, Verified 06/28/17 10:34) minoxidil Adverse Reaction (Unknown, Verified 06/28/17 10:34) adhesive tape Adverse Reaction (Verified 06/28/17 10:34) ferraheme Adverse Reaction (Uncoded 03/25/16 18:36) states drug made him feel bad all over.Received when getting chemo. Home Medications: Ambulatory Orders Albuterol Sulfate [Proair Hfa] 2 puff IH Q6H PRN 01/24/13 Aspirin [Aspirin Chewable] 81 mg PO DAILY 01/24/13 Carvedilol [Coreg] 25 mg PO BID 01/24/13 Insulin Regular, Human [Humulin R] See Protocol SQ PRN PRN 01/24/13 Ipratropium/Albuterol Sulfate [Combivent Inhaler] 2 puff IH QID PRN 01/24/13 Rosuvastatin Calcium [Crestor] 20 mg PO QPM 01/24/13 Tizanidine HCl [Zanaflex] 4 mg PO BID PRN 01/24/13 Zolpidem Tartrate [Ambien] 5 mg PO BEDTIME 01/24/13 Hydrocodone Bit/Acetaminophen [[place] 7.5-325] 7.5 mg PO QID 03/12/15 Arformoterol Tartrate [Brovana] 15 mcg NEB BID PRN 06/11/15 Budesonide 0.25 mg IH BID PRN 06/11/15 Gabapentin 1,200 mg PO BEDTIME 06/11/15 Gabapentin 600 mg PO 0900,1300 06/11/15 Insulin Glargine,Hum.rec.anlog [Lantus] 25 unit SUBCUT BEDTIME 06/11/15 Ondansetron HCl [Zofran Tab] 4 mg PO Q12H PRN 06/11/15 Pantoprazole Sodium [Protonix] 40 mg PO QDAC 06/11/15 Metolazone [Zaroxolyn] 2.5 mg PO 3 TIMES PER WEEK PRN 10/06/15 Linaclotide [Linzess] 145 mcg PO DAILY PRN 11/14/16 Lorazepam [Ativan] 0.5 mg PO DAILY 04/11/17 Prasugrel HCl [Effient] 10 mg PO DAILY 04/11/17 Ranolazine [Ranexa] 500 mg PO BID 04/11/17 Sildenafil Citrate [Viagra] 100 mg PO DIRECTED PRN 04/11/17 Valsartan 80 mg PO QAM 04/11/17 Furosemide [Lasix Tab] 40 mg PO QDAC #30 tablet 04/13/17
== END 2017-06-28 11:31 | disposition home or self-care (01) ==
LOC: ED 10:28
DX: H10.021 Other mucopurulent conjunctivitis, right eye (principal)
CPT/HCPCS: 99283

== ENCOUNTER 2017-08-16 09:46 | Outpatient (CLI) ==
[2013-01-29 11:46] VITALS: TEMP 97.2
== END 2017-08-16 09:47 | disposition home or self-care (01) ==
LOC: LAB 09:46
PROVIDERS: ATTEND Internal Medicine Hematology & Oncology
DX: C85.10 Unspecified B-cell lymphoma, unspecified site (principal); D64.9 Anemia, unspecified; D45 Polycythemia vera
CPT/HCPCS: 36415; 80053; 82232; 82728; 83540; 83550; 83615; 85025

== ENCOUNTER 2017-09-20 11:20 | Emergency (ER) ==
[2017-09-20 11:25] VITALS: BP 188/114; TEMP 97.6; BMI 38.7
--- NOTE | 2017-09-20 12:26 | ED.PDOC ---
General ED Provider: Dr. NOAH PAGAN Chief Complaint: Hypertension Stated Complaint: HHYPERTENSION Time Seen by Physician: 11:23 Mode of Arrival: Walk-In Information Source: Patient Exam Limitations: No limitations Primary Care Provider: RICARDO STUBBS Nursing and Triage Documentation Reviewed and Agree: Yes (SEEN WITH NURSING STAFF AT ALL TIMES ) Reviewed sepsis parameters & appropriate labs ordered?: Yes System Inflammatory Response Syndrome: Not Applicable Sepsis Protocol: For patient's 13 years and over: Temp is 96.8 and below OR 101 and greater Pulse >90 BPM Resp >20/minute Acutely Altered Mental Status Are patient's symptoms suggestive of a new infection, such as: -Pneumonia -Skin, Soft Tissue -Endocarditis -UTI -Bone, Joint Infection -Implantable Device -Acute Abdominal Infection -Wound Infection -Meningitis -Blood Stream Catheter Infection -Unknown System Inflammatory Response Syndrome: Not Applicable Cardiovascular Complaint Exam - Hypertension Complaint/Exam Onset/Duration: TODAY WAS 200/100 2 HRS AGO Symptoms Are: Still present (IMPROVED 170/91) Timing: Intermittent Reported B/P Prior to Arrival: 200/100 Aggravating: Reports: None Alleviating: Reports: None Associated Signs and Symptoms: Denies: Chest pain, Vision changes, Anxiety, Recent stress, Headache, Numbness, Tingling, Weakness, Dizziness, Short of air, Swelling Related History: Reports: Similar episode Related Surgical History: Reports: None Cardiac Risk Factors: Reports: Hypertension Recent Change in Medications: No A/V [place]: No Papilledema Present: No JVD Present: No Carotid Bruit Present: No Femoral Pulses Bounding: No Differential Diagnoses: Hypertension Quality Indicator For Non-Traumatic Chest Pain/Syncope: EKG Performed Review of Systems - Review Of Systems Constitutional: Reports: No symptoms Eyes: Reports: No symptoms Ears, Nose, Mouth, Throat: Reports: No symptoms Respiratory: Reports: No symptoms Cardiac: Reports: Chest pain GI: Reports: No symptoms : Reports: No symptoms Musculoskeletal: Reports: No symptoms Skin: Reports: No symptoms Neurological: Reports: No symptoms Endocrine: Reports: No symptoms Hematologic/Lymphatic: Reports: No symptoms All Other Systems: Reviewed and Negative Past Medical History - Past Medical History Previously Healthy: No Endocrine: Reports: DM 2, Dyslipidemia Cardiovascular: Reports: [place], Hypertension Respiratory: Reports: COPD Hematological: Reports: None Gastrointestinal: Reports: None Genitourinary: Reports: None Neuro/Psych: Reports: Anxiety Musculoskeletal: Reports: None Cancer: Reports: Colon Other Pertinent Past Medical History: Lymphoma, Brain Aneurysm, Castleman's Disease - Surgical History General Surgical History: Reports: Appendectomy, Cholecystectomy, Tonsillectomy , Stent, Heart Cath, Other (Bowel Resection X2 (CA)) - Family History Family History: Reports: Unknown - Social History Smoking Status: Never smoker Hx Substance Use: No Alcohol Screening: Occasionally Physical Exam - Physical Exam Appearance: Well-appearing, No pain distress, Well-nourished Eyes: NOA, EOMI, Conjunctiva clear ENT: Ears normal, Nose normal, Oropharynx normal Respiratory: Airway patent, Breath sounds clear, Breath sounds equal, Respirations nonlabored Cardiovascular: RRR, Pulses normal, No rub, No murmur GI/: Soft, Nontender, No masses, Bowel sounds normal, No Organomegaly Musculoskeletal: Normal strength, ROM intact, No edema, No calf tenderness Skin: Warm, Dry, Normal color Neurological: Sensation intact, Motor intact, Reflexes intact, Cranial nerves intact, Alert, Oriented Psychiatric: Affect appropriate, Mood appropriate Interpretation - Mortgage Loan Computation Clerk Rate: Normal Rhythm: Sinus - EKG Interpretation Rate: Normal Rhythm: Sinus (WITH 1ST DEGREE AV BLOCK UPRIGHT T WAVE ON V1 WHICH WAS PRESENT ON OLD EKG14 SEPT) Re-Evaluation - Re-Evaluation Time of Re-Evaluation: 12:00 (NO CHEST PAIN NURSE PRESENT) Status: Improved Vital Signs Stable: Yes Pain Level: 0 Appearance: NAD Lungs: Clear Skin: Warm and Dry Neuro: Alert and Oriented X3 CV: RRR - Re-Evaluation Time of Re-Evaluation: 12:28 (ALINE PRESENT DISCUSSED FINDING ) Status: Improved Vital Signs Stable: Yes Pain Level: 0 Appearance: NAD Skin: Warm and Dry Neuro: Alert and Oriented X3 CV: RRR Critical Care Note - Critical Care Note Total Time (mins): 0 Course - Course Hematology/Chemistry: 09/20/17 11:42 Orders, Labs, Meds: Lab Review 09/20/17 11:42 WBC 5.51 RBC 4.46 L Hgb 12.9 L Hct 38.7 L MCV 86.8 MCH 28.9 MCHC 33.3 RDW Coeff of Kvng 13.5 Plt Count 149 Immature Gran % (Auto) 0.7 Neut % (Auto) 70.8 Lymph % (Auto) 16.7 [place] % (Auto) 8.7 Eos % (Auto) 2.7 Baso % (Auto) 0.4 Immature Gran # (Auto) 0.0 Neut # 3.9 Lymph # 0.9 [place] # 0.5 Eos # 0.2 Baso # 0.0 Orders Category Date Time Status EKG-(ED ONLY) Stat CARDIO 09/20/17 11:35 Ordered CBC W/ AUTO DIFF Stat LAB 09/20/17 11:42 Completed COMPREHENSIVE METABOLIC PANEL Stat LAB 09/20/17 11:42 Received CREATINE KINASE Stat LAB 09/20/17 11:42 Received TROPONIN I Stat LAB 09/20/17 11:42 Received Vital Signs: Temp Pulse Resp BP Pulse Ox 09/20/17 11:21 97.6 F 87 20 188/114 H 95 DAVID Risk Score DAVID Risk Score: Risk Score Odds of by 30D 0 0.1 (0.1-0.2) 1 0.3 (0.2-0.3) 2 0.4 (0.3-0.5) 3 0.7 (0.6-0.9) 4 1.2 (1.0-1.5) 5 2.2 (1.9-2.6) 6 3.0 (2.5-3.6) 7 4.8 (3.8-6.1) Departure - Departure Time of Disposition: 13:00 (THIS PT WAS SEEN WITH MULTIPLE STAFF, ROC AND TAMMY HAS BEEN CHEST PAIN FREE AT ALL TIMES ) Disposition: HOME SELF-CARE Discharge Problem: Hypertension Qualifiers: Hypertension type: unspecified Qualified Code(s): I10 - Essential (primary) hypertension Instructions: Hypertension (ED) Condition: Good Pt referred to PMD for follow-up: Yes IPMP verified?: No Additional Instructions: Please call your Family Physician as soon as possible to schedule a follow-up appointment. Allergies/Adverse Reactions: Allergies clonidine Adverse Reaction (Severe, Verified 09/20/17 11:26) Swelling codeine Adverse Reaction (Unknown, Verified 09/20/17 11:26) minoxidil Adverse Reaction (Unknown, Verified 09/20/17 11:26) adhesive tape Adverse Reaction (Verified 09/20/17 11:26) ferraheme Adverse Reaction (Uncoded 03/25/16 18:36) states drug made him feel bad all over.Received when getting chemo. Home Medications: Ambulatory Orders Albuterol Sulfate [Proair Hfa] 2 puff IH Q6H PRN 01/24/13 Aspirin [Aspirin Chewable] 81 mg PO DAILY 01/24/13 Carvedilol [Coreg] 25 mg PO BID 01/24/13 Insulin Regular, Human [Humulin R] See Protocol SQ PRN PRN 01/24/13 Ipratropium/Albuterol Sulfate [Combivent Inhaler] 2 puff IH QID PRN 01/24/13 Rosuvastatin Calcium [Crestor] 20 mg PO QPM 01/24/13 Tizanidine HCl [Zanaflex] 4 mg PO BID PRN 01/24/13 Zolpidem Tartrate [Ambien] 5 mg PO BEDTIME 01/24/13 Hydrocodone Bit/Acetaminophen [[place] 7.5-325] 7.5 mg PO QID 03/12/15 Arformoterol Tartrate [Brovana] 15 mcg NEB BID PRN 06/11/15 Budesonide 0.25 mg IH BID PRN 06/11/15 Gabapentin 1,200 mg PO BEDTIME 06/11/15 Gabapentin 600 mg PO 0900,1300 06/11/15 Insulin Glargine,Hum.rec.anlog [Lantus] 25 unit SUBCUT BEDTIME 06/11/15 Ondansetron HCl [Zofran Tab] 4 mg PO Q12H PRN 06/11/15 Pantoprazole Sodium [Protonix] 40 mg PO QDAC 06/11/15 Metolazone [Zaroxolyn] 2.5 mg PO 3 TIMES PER WEEK PRN 10/06/15 Linaclotide [Linzess] 145 mcg PO DAILY PRN 11/14/16 Lorazepam [Ativan] 0.5 mg PO DAILY 04/11/17 Prasugrel HCl [Effient] 10 mg PO DAILY 04/11/17 Ranolazine [Ranexa] 500 mg PO BID 04/11/17 Sildenafil Citrate [Viagra] 100 mg PO DIRECTED PRN 04/11/17 Valsartan 80 mg PO QAM 04/11/17 Furosemide [Lasix Tab] 40 mg PO BID 09/20/17
== END 2017-09-20 12:43 | disposition home or self-care (01) ==
LOC: ED 11:20
DX: I10 Essential (primary) hypertension (principal); E78.5 Hyperlipidemia, unspecified; E11.9 Type 2 diabetes mellitus without complications; I25.2 Old myocardial infarction; J44.9 Chronic obstructive pulmonary disease, unspecified; Z79.899 Other long term (current) drug therapy
CPT/HCPCS: 36415; 80053; 82550; 84484; 85025; 93005; 93010; 99282

== ENCOUNTER 2017-10-10 08:57 | Outpatient (CLI) ==
[2017-10-10 09:30] VITALS: BP 156/83; TEMP 97.6
[2017-10-10] MEDS ORDERED: SOLU-CORTEF 100 MG 100 MG in SODIUM CHLORIDE 100 ML IV ONE (09:35)
[2017-10-10] MEDS: TYLENOL PO STA (10:24)
[2017-10-10] MEDS: BENADRYL 25 MG in SODIUM CHLORIDE 100 ML IV STA ×2 (10:24→14:10)
[2017-10-10] MEDS: SOLU-CORTEF 100 MG IVP ONE (10:37)
[2017-10-10] MEDS: INFED IVP STA (10:53)
[2017-10-10] MEDS: INFED 500 MG in SODIUM CHLORIDE 250 ML IV STA (11:29)
== END 2017-10-10 08:58 | disposition home or self-care (01) ==
LOC: OPMED 08:57
PROVIDERS: ATTEND Internal Medicine Hematology & Oncology
DX: D50.9 Iron deficiency anemia, unspecified (principal); K90.9 Intestinal malabsorption, unspecified
CPT/HCPCS: 96365; 96366; 96367; 96375

== ENCOUNTER 2018-01-29 17:56 | Emergency (ER) | payer OTHER ==
[2018-01-29 18:03] VITALS: TEMP 98.6; BMI 37.7
[2018-01-29] MEDS ORDERED: NORCO 10-325 PO STA (18:11)
--- NOTE | 2018-01-29 18:15 | ED.PDOC ---
General ED Provider: Dr. NOAH PAGAN Chief Complaint: Back Pain Stated Complaint: low back pain Time Seen by Physician: 18:00 (SEEN WITH AMANDA) Mode of Arrival: Walk-In Information Source: Patient Exam Limitations: No limitations Primary Care Provider: RICARDO STUBBS Nursing and Triage Documentation Reviewed and Agree: Yes Does patient meet sepsis criteria?: Yes If yes, has appropriate treatment been initiated?: No (fall 2 day ago) System Inflammatory Response Syndrome: Not Applicable Sepsis Protocol: For patient's 13 years and over: Temp is 96.8 and below OR 101 and greater Pulse >90 BPM Resp >20/minute Acutely Altered Mental Status Are patient's symptoms suggestive of a new infection, such as: -Pneumonia -Skin, Soft Tissue -Endocarditis -UTI -Bone, Joint Infection -Implantable Device -Acute Abdominal Infection -Wound Infection -Meningitis -Blood Stream Catheter Infection -Unknown Musculoskeletal Complaint Exam - Back Pain Complaint/Exam Mechanism of Injury: Reports: Trauma Onset/Duration: 2 DAYS Symptoms Are: Still present Timing: Constant Episodes Lasting: Days Initial Severity: Moderate Current Severity: Moderate Location: Reports: Discrete Character: Reports: Aching Aggravating: Reports: Movements, Lifting, Bending, Walking Alleviating: Reports: Rest, Position Associated Signs and Symptoms: Denies: Swelling, Redness, Bruising, Fever, Weakness, Numbness, Tingling, Abdominal pain, Flank pain, Bladder incontinence, Bowel incontinence, Weight loss, Pain with weight bearing TAD Risk Factors: Reports: Hypertension AAA Risk Factors: Reports: Hypertension [place] Risk Factors: Denies: Bladder dysfuntion, Bowel dysfunction, Lower extremity weakness Epidural Abcess Risk Factors: Reports: None Related Surgical History: Reports: None Focal Tenderness: No Paraspinal Muscle Tenderness: No Paraspinal Muscle Spasm: No Scoliosis: No Lordosis: No Kyphosis: No Focal Weakness: Present: None Focal Sensory Loss: Present: None Gait: Present: Normal Differential Diagnoses: Fracture, Strain, Sprain Review of Systems - Review Of Systems Constitutional: Reports: No symptoms Eyes: Reports: No symptoms Ears, Nose, Mouth, Throat: Reports: No symptoms Respiratory: Reports: No symptoms Cardiac: Reports: No symptoms GI: Reports: No symptoms : Reports: No symptoms Musculoskeletal: Reports: Back pain Skin: Reports: No symptoms Neurological: Reports: No symptoms Endocrine: Reports: No symptoms Hematologic/Lymphatic: Reports: No symptoms All Other Systems: Reviewed and Negative Past Medical History - Past Medical History Previously Healthy: No Endocrine: Reports: DM 2, Dyslipidemia Cardiovascular: Reports: [place], Hypertension Respiratory: Reports: COPD Hematological: Reports: None Gastrointestinal: Reports: None Genitourinary: Reports: None Neuro/Psych: Reports: Anxiety Musculoskeletal: Reports: None Cancer: Reports: Colon Other Pertinent Past Medical History: Lymphoma, Brain Aneurysm, Castleman's Disease - Surgical History General Surgical History: Reports: Appendectomy, Cholecystectomy, Tonsillectomy , Stent, Heart Cath, Other (Bowel Resection X2 (CA)) - Family History Family History: Reports: Unknown - Social History Smoking Status: Never smoker Hx Substance Use: No Alcohol Screening: Occasionally Physical Exam - Physical Exam Appearance: Well-appearing, No pain distress, Well-nourished Eyes: NOA, EOMI, Conjunctiva clear ENT: Ears normal, Nose normal, Oropharynx normal Respiratory: Airway patent, Breath sounds clear, Breath sounds equal, Respirations nonlabored Cardiovascular: RRR, Pulses normal, No rub, No murmur GI/: Soft, Nontender, No masses, Bowel sounds normal, No Organomegaly Musculoskeletal: Normal strength, ROM intact, No edema, No calf tenderness Skin: Warm, Dry, Normal color Neurological: Sensation intact, Motor intact, Reflexes intact, Cranial nerves intact, Alert, Oriented Psychiatric: Affect appropriate, Mood appropriate Critical Care Note - Critical Care Note Total Time (mins): 0 Course - Course Orders, Labs, Meds: Orders Category Date Time Status Hydrocodone Bit/Acetaminophen [[place] 10-325] MEDS 01/29/18 18:11 Stat 1 tab PO ONCE STA CT LUMBAR SPINE W/O CONTRAST Stat RADS 01/29/18 18:12 Ordered Medications Generic Name Dose Route Start Last Admin Trade Name Freq PRN Reason Stop Dose Admin Hydrocodone Bitart/Acetaminophen 1 tab 01/29/18 18:11 [place] 10-325 PO 01/29/18 18:12 ONCE STA Vital Signs: Temp Pulse Resp BP Pulse Ox 01/29/18 17:57 98.6 F 103 H 20 0/0 L 94 L Departure - Departure Time of Disposition: 19:00 Disposition: HOME SELF-CARE Discharge Problem: Backache Instructions: Back Pain (ED) Condition: Good Pt referred to PMD for follow-up: Yes IPMP verified?: No Allergies/Adverse Reactions: Allergies clonidine Adverse Reaction (Severe, Verified 01/29/18 18:00) Swelling codeine Adverse Reaction (Unknown, Verified 01/29/18 18:00) minoxidil Adverse Reaction (Unknown, Verified 01/29/18 18:00) adhesive tape Adverse Reaction (Verified 01/29/18 18:00) ferraheme Adverse Reaction (Uncoded 03/25/16 18:36) states drug made him feel bad all over.Received when getting chemo. Home Medications: Ambulatory Orders Albuterol Sulfate [Proair Hfa] 2 puff IH Q6H PRN 01/24/13 Aspirin [Aspirin Chewable] 81 mg PO DAILY 01/24/13 Carvedilol [Coreg] 25 mg PO BID 01/24/13 Insulin Regular, Human [Humulin R] See Protocol SQ PRN PRN 01/24/13 Ipratropium/Albuterol Sulfate [Combivent Inhaler] 2 puff IH QID PRN 01/24/13 Rosuvastatin Calcium [Crestor] 20 mg PO QPM 01/24/13 Tizanidine HCl [Zanaflex] 4 mg PO BID PRN 01/24/13 Zolpidem Tartrate [Ambien] 5 mg PO BEDTIME 01/24/13 Hydrocodone Bit/Acetaminophen [[place] 7.5-325] 7.5 mg PO QID 03/12/15 Arformoterol Tartrate [Brovana] 15 mcg NEB BID PRN 06/11/15 Budesonide 0.25 mg IH BID PRN 06/11/15 Gabapentin 1,200 mg PO BEDTIME 06/11/15 Gabapentin 600 mg PO 0900,1300 06/11/15 Insulin Glargine,Hum.rec.anlog [Lantus] 25 unit SUBCUT BEDTIME 06/11/15 Ondansetron HCl [Zofran Tab] 4 mg PO Q12H PRN 06/11/15 Pantoprazole Sodium [Protonix] 40 mg PO QDAC 06/11/15 Metolazone [Zaroxolyn] 2.5 mg PO 3 TIMES PER WEEK PRN 10/06/15 Linaclotide [Linzess] 145 mcg PO DAILY PRN 11/14/16 Lorazepam [Ativan] 0.5 mg PO DAILY 04/11/17 Prasugrel HCl [Effient] 10 mg PO DAILY 04/11/17 Ranolazine [Ranexa] 500 mg PO BID 04/11/17 Sildenafil Citrate [Viagra] 100 mg PO DIRECTED PRN 04/11/17 Valsartan 80 mg PO QAM 04/11/17 Furosemide [Lasix Tab] 40 mg PO BID 09/20/17
[2018-01-29 18:52] VITALS: BP 180/100
--- NOTE | 2018-01-29 19:04 | CT ---
EXAM: CT of the lumbar spine. HISTORY: Injury and pain. Fall. COMPARISON: CT of the abdomen and pelvis dated of . TECHNIQUE: Contiguous axial images at 3 mm intervals were obtained through the lumbar spine. Sagitt al and coronal reformats were reviewed. No contrast. FINDINGS: There are five [id number] vertebral bodies. There is a transitional segment at S1.. There is normal curvature and alignment. The vertebral heights are well maintained. There are no a cute or healing fractures. Bone mineralization is normal. There are no lytic or blastic lesions. T he soft tissues are unremarkable. There is no retroperitoneal fluid collection. The aorta is normal . Segmental analysis: L1-2: Facet hypertrophy. No spinal canal or neural foramen narrowing L2-3: A minimal disc bulge. Facet hypertrophy mild left neural foramen narrowing.. L3-4: Disc narrowing. Facet hypertrophy. No definite spinal canal or neural foramen.. L4-5: Disc narrowing. Post osteophytes. Mild bilateral neural foramen narrowing. L5-S1: Disc narrowing. Posterior osteophytes. Mild bilateral neural foramen narrowing. IMPRESSION: 1. No acute fractures. 2. Degenerative disc disease and degenerative joint disease as described above.
== END 2018-01-29 19:07 | disposition home or self-care (01) ==
LOC: ED 17:56
DX: M54.5 Low back pain (principal); I10 Essential (primary) hypertension; W19.XXXA Unspecified fall, initial encounter
CPT/HCPCS: 99283